=== PATIENT | male | born 1990 | race Caucasian/White ===

== ENCOUNTER 2016-12-06 05:02 | Emergency (ER) | payer BC, OTHER ==
--- NOTE | 2016-12-06 06:22 | EDM.PDOC ---
ED HPI GENERAL MEDICAL PROBLEM - General Chief Complaint: Genitourinary Problem Stated Complaint: GROIN PAIN Time Seen by Provider: 12/06/16 05:16 Source of Information: Reports: Patient, RN Notes Reviewed - History of Present Illness INITIAL COMMENTS - FREE TEXT/NARRATIVE: 26-year-old male presents with right groin and urethral discomfort. He states this started 1-1/2 days ago. He does have voiding dysuria. No drainage or unusual discharge. No fever chills nausea vomiting or hematuria. Not aware of any particular injury. No unusual swelling and no visible lesions. Groin Pain Score (Numeric/FACES): 6 - Related Data Allergies Allergy/AdvReac Type Severity Reaction Status Date / Time No Known Allergies Allergy Verified 12/06/16 05:09 Home Meds: Home Meds Hydrocodone/Acetaminophen [[place] 5-325 Tablet] 1 each PO Q6HR PRN #10 tablet [Rx] Past Medical History - Past Health History Medical/Surgical History: Denies Medical/Surgical History Social & Family History - Tobacco Use Smoking Status *Q: Never Smoker - Recreational Drug Use Recreational Drug Use: No ED ROS GENERAL - Review of Systems Review Of Systems: See Below Constitutional: Denies: Fever, Chills HEENT: Denies: Throat Pain Respiratory: Denies: Shortness of Breath Cardiovascular: Denies: Chest Pain GI/Abdominal: Denies: Abdominal Pain, Nausea, Vomiting : Reports: Dysuria, Pain (Right groin and along the volar base of penis and urethra). Denies: Discharge, Hematuria Musculoskeletal: Reports: No Symptoms Skin: Denies: Rash Neurological: Reports: No Symptoms ED EXAM, RENAL/ - Physical Exam Exam: See Below General Appearance: Alert, Mild Distress Throat/Mouth: Normal Inspection, Normal Oropharynx Head: Atraumatic Neck: Supple, Full Range of Motion. No: Lymphadenopathy (L), Lymphadenopathy (R ) Respiratory/Chest: No Respiratory Distress, Lungs Clear, Normal Breath Sounds Cardiovascular: Regular Rate, Rhythm GI/Abdominal: Non-Tender, No Mass. No: Guarding (Male) Exam: Scrotum Tenderness (R) (Mild), Other (Very tender along the volar base of the penis and course of the urethra). No: Hernia, Inguinal Lymphadenopathy, Penile Lesions, Scrotal Swelling, Scrotum Tenderness (L), Urethral Discharge Extremities: Normal Inspection, Normal Range of Motion Skin Exam: Warm, Dry, Normal Color, No Rash Course - Vital Signs Last Recorded V/S: Last Vital Signs Temp 98.7 F 12/06/16 05:10 Pulse 89 12/06/16 05:10 Resp 18 12/06/16 05:10 BP 146/73 H 12/06/16 05:10 Pulse Ox 98 12/06/16 05:10 - Orders/Labs/Meds Labs: Laboratory Tests 12/06/16 12/06/16 Range/Units 05:28 05:28 Urine Color Yellow (Yellow) Urine Appearance Clear (Clear) Urine pH 6.5 (5.0-8.0) Ur Specific [place] 1.015 (1.005-1.030) Urine Protein Negative (Negative) Urine Glucose (UA) Negative (Negative) Urine Ketones Negative (Negative) Urine Occult Blood Negative (Negative) Urine Nitrite Negative (Negative) Urine Bilirubin Negative (Negative) Urine Urobilinogen 0.2 (0.2-1.0) Ur Leukocyte Esterase Negative (Negative) Urine RBC 0-5 (0-5) /hpf Urine WBC 0-5 (0-5) /hpf Ur Epithelial Cells Not seen (0-5) /hpf Amorphous Sediment Few H (NOT SEEN) /hpf Urine Bacteria Few (FEW) /hpf Urine Mucus Not seen (FEW) /hpf C trachomatis DNA (PCR) Not detected N gonorrhoeae DNA (PCR) Not detected - Re-Assessments/Exams Free Text/Narrative Re-Assessment/Exam: 12/06/16 07:43 Ua,GC chlamydia screen neg., however patient very symptomatic for urethritis, no discharge, tender and having pain along entire course of urethra, will treat with zithromax 1 gram PO,discharge instr. as documented. Departure - Departure Time of Disposition: 07:37 Disposition: Home, Self-Care 01 Condition: Fair Clinical Impression: Urethritis, nonspecific - Discharge Information Prescriptions: Hydrocodone/Acetaminophen [[place] 5-325 Tablet] 1 each PO Q6HR PRN #10 tablet PRN Reason: Pain Referrals: PCP,None [Primary Care Provider] - Forms: ED Department Discharge Additional Instructions: Drink plenty of fluids, Zithromax antibiotic as prescribed, you may take Advil or ibuprofen 3-4 times daily, hydrocodone if needed for severe pain, follow-up clinic if not much better within 2-3 days as expected, return to ED if symptoms worsening in any way
[2016-12-06 07:17] LABS: C. TRACHOMATIS BY PCR NOT DETECTED; N. GONORRHOEAE BY PCR NOT DETECTED
== END 2016-12-06 07:47 | disposition home or self-care (01) ==
LOC: JD.ED 05:02
DX: N34.2 Other urethritis (principal)
CPT/HCPCS: 81001; 87491; 87591; 99283

== ENCOUNTER 2021-10-24 13:05 | Emergency (ER) | payer BC, OTHER | END 2021-10-24 15:30 | disposition home or self-care (01) | LOC: JD.ED 13:05 | DX: S93.402A Sprain of unspecified ligament of left ankle, initial encounter (principal); X50.1XXA Overexertion from prolonged static or awkward postures, initial encounter; Y99.0 Civilian activity done for income or pay | CPT/HCPCS: 73610-26-LT; 73610-LT; 99283 ==